=== PATIENT | male | born 1990 | race Hispanic/Latino ===

== ENCOUNTER 2017-12-28 01:38 | Inpatient (IN) | payer SELFPAY ==
[~2017-12-28] VITALS: Ht 185.4 cm; Wt 108.9 kg
[2017-12-28 03:13] LABS: APPEARANCE,URINE Clear (CLEAR); BILIRUBIN,URINE Large (NEGATIVE); COLOR,URINE Dark Yellow (YELLOW); GLUCOSE, URINE (UA) Negative (NEGATIVE); KETONES,URINE Negative (NEGATIVE); LEUKOCYTE ESTERASE ,URINE Trace (NEGATIVE); NITRATE,URINE Negative (NEGATIVE); OCCULT BLOOD,URINE Negative (NEGATIVE); PROTEIN,URINE Negative (NEGATIVE)
[2017-12-28 03:16] LABS: BASOPHILS % (AUTO) 0.6 % (0.0-5.0); EOSINOPHILS % (AUTO) 0.8 % (0.0-8.0); HEMATOCRIT 47.1 % (42-54); LYMPHOCYTES % (AUTO) 18.2 % (21.0-51.0); MEAN CORPUSCULAR HEMOGLOBIN 29.1 pg (27.0-33.0); MEAN CORPUSCULAR VOLUME 85.5 fL (79-99); NEUTROPHILS % (AUTO) 74.4 % (40.0-77.0); PLATELET COUNT (AUTO) 264 K/uL (130-400); RED CELL DISTRIBUTION WIDTH 14.3 % (11.0-15.5); WHITE BLOOD COUNT (AUTO) 11.8 K/uL (4.8-10.8)
[2017-12-28 03:28] LABS: CREATININE 0.9 mg/dL (0.5-1.5); POTASSIUM 3.7 mmol/L (3.5-5.1)
[2017-12-28 03:30] LABS: BACTERIA,URINE Rare /HPF (None Seen); MUCUS,URINE Many LPF (None Seen); RBC,URINE None Seen /HPF (0-1); SQUAMOUS EPITHELIAL CELL,UR Few /HPF (0-2); WBC,URINE None Seen /HPF (0-1)
[2017-12-28 03:37] LABS: ALBUMIN 4.1 g/dL (3.5-5.0); BILIRUBIN,TOTAL 4.4 mg/dL (0.2-1.0); TOTAL PROTEIN, SERUM 8.4 g/dL (6.0-8.3)
[2017-12-28] MEDS ORDERED: GUAIFENESIN-DM 200/20 MG 10 ML PO PRN (09:45)
[2017-12-28] MEDS ORDERED: SODIUM CHLORIDE 0.9% 1000ML 1,000 ML IV ONE (12:36)
[2017-12-28] MEDS ORDERED: ONDANSETRON HCL MDV 20ML 2 MG/ML VIAL ONE ×2 (12:44→12:45)
[2017-12-28 14:27] LABS: AMPHET/METH SCREEN,URINE NEGATIVE (NEGATIVE); BARBITURATE SCREEN, URINE NEGATIVE (NEGATIVE); BENZODIAZEPINES SCREEN,URINE NEGATIVE (NEGATIVE); CANNABINOID SCREEN,URINE POSITIVE (NEGATIVE); COCAINE SCREEN,URINE NEGATIVE (NEGATIVE); OPIATE SCREEN,URINE POSITIVE (NEGATIVE); PHENCYCLIDINE SCREEN,URINE NEGATIVE (NEGATIVE)
[2017-12-28 17:50] VITALS: BP 152/78
[2017-12-28 19:56] VITALS: BP 126/76
[2017-12-28] MEDS: FAMOTIDINE/PF 20 MG/2 ML VIAL IV SCH (20:18)
[2017-12-28] MEDS: SODIUM CHLORIDE 0.9% 1000ML 1,000 ML IV SCH (20:20)
[2017-12-28 23:55] VITALS: BP 143/85
[2017-12-29] MEDS ORDERED: POTASSIUM CHLORIDE 10% ELIXIR 20 MEQ/15 ML UDCUP PO PRN (00:15)
[2017-12-29] MEDS ORDERED: LIDOCAINE HCL-MPF 1% 2ML VIAL IVP PRN (00:15)
[2017-12-29] MEDS ORDERED: MEPERIDINE-PF 25 MG/ML SYG ONE (02:35)
[2017-12-29 04:27] VITALS: BP 112/63
[2017-12-29 04:51] LABS: BASOPHILS % (AUTO) 0.6 % (0.0-5.0); EOSINOPHILS % (AUTO) 2.1 % (0.0-8.0); HEMATOCRIT 43.2 % (42-54); MEAN CORPUSCULAR HEMOGLOBIN 29.1 pg (27.0-33.0); MEAN CORPUSCULAR HGB CONC 34.3 g/dL (32.0-36.0); MEAN CORPUSCULAR VOLUME 84.9 fL (79-99); MONOCYTES % (AUTO) 6.9 % (3.0-13.0); NEUTROPHILS % (AUTO) 59.4 % (40.0-77.0); PLATELET COUNT (AUTO) 264 K/uL (130-400)
[2017-12-29 05:23] LABS: ALBUMIN 3.5 g/dL (3.5-5.0); BILIRUBIN,TOTAL 4.8 mg/dL (0.2-1.0); CREATININE 0.8 mg/dL (0.5-1.5); POTASSIUM 3.6 mmol/L (3.5-5.1); TOTAL PROTEIN, SERUM 7.2 g/dL (6.0-8.3)
[2017-12-29 08:00] VITALS: BP 131/62
[2017-12-29 08:12] LABS: HEPATITIS A ANTIBODY IGM Negative (Negative); HEPATITIS B CORE IGM Negative (Negative); HEPATITIS Bs ANTIGEN SCREEN P Negative (Negative)
[2017-12-29] MEDS: FAMOTIDINE/PF 20 MG/2 ML VIAL IV SCH ×2 (09:00→21:27)
[2017-12-29] MEDS: ONDANSETRON HCL MDV 20ML 2 MG/ML VIAL IVP PRN (09:52)
[2017-12-29] MEDS: SODIUM CHLORIDE 0.9% 1000ML 1,000 ML IV SCH ×2 (10:00→15:41)
[2017-12-29 12:00] VITALS: BP 121/66
[2017-12-29 16:00] VITALS: BP 124/60
[2017-12-29] MEDS ORDERED: LORAZEPAM 2 MG/ML 1 ML VIAL IVP ONE (16:00)
[2017-12-29 19:00] VITALS: BP 134/83
[2017-12-29] MEDS: MEPERIDINE HCL/PF 25 MG/0.5 ML AMPUL IVP PRN (21:29)
[2017-12-29] MEDS ORDERED: LORAZEPAM 2 MG/ML 1 ML VIAL ONE (21:48)
[2017-12-29 23:49] VITALS: BP 134/80
[2017-12-30 04:00] VITALS: BP 134/87
[2017-12-30 05:36] LABS: BASOPHILS % (AUTO) 0.7 % (0.0-5.0); EOSINOPHILS % (AUTO) 2.4 % (0.0-8.0); HEMATOCRIT 43.7 % (42-54); LYMPHOCYTES % (AUTO) 26.1 % (21.0-51.0); MEAN CORPUSCULAR HEMOGLOBIN 29.2 pg (27.0-33.0); MEAN CORPUSCULAR HGB CONC 34.1 g/dL (32.0-36.0); MEAN CORPUSCULAR VOLUME 85.6 fL (79-99); MONOCYTES % (AUTO) 6.9 % (3.0-13.0); NEUTROPHILS % (AUTO) 63.9 % (40.0-77.0); PLATELET COUNT (AUTO) 242 K/uL (130-400); RED BLOOD CELL COUNT(AUTO) 5.11 MIL/uL (4.50-6.20); RED CELL DISTRIBUTION WIDTH 14.1 % (11.0-15.5); WHITE BLOOD COUNT (AUTO) 8.2 K/uL (4.8-10.8)
[2017-12-30 06:04] LABS: ALBUMIN 3.5 g/dL (3.5-5.0); BILIRUBIN,TOTAL 4.7 mg/dL (0.2-1.0); CREATININE 0.7 mg/dL (0.5-1.5); POTASSIUM 3.3 mmol/L (3.5-5.1); TOTAL PROTEIN, SERUM 7.4 g/dL (6.0-8.3)
[2017-12-30 08:00] VITALS: BP 108/68
[2017-12-30] MEDS: POTASSIUM CHLORIDE 20MEQ/100ML 100 ML IV PRN (08:51)
[2017-12-30] MEDS ORDERED: PANTOPRAZOLE SODIUM 40 MG TABLET.DR PO SCH (09:00)
[2017-12-30] MEDS: ONDANSETRON HCL MDV 20ML 2 MG/ML VIAL IVP PRN ×2 (09:24→23:48)
[2017-12-30] MEDS: MEPERIDINE HCL/PF 25 MG/0.5 ML AMPUL IVP PRN (09:25)
[2017-12-30] MEDS: ALPRAZOLAM 0.25 MG TABLET PO PRN ×2 (10:54→22:29)
[2017-12-30] MEDS: SODIUM CHLORIDE 0.9% 1000ML 1,000 ML IV SCH ×3 (11:41→23:48)
[2017-12-30 12:00] VITALS: BP 122/76
[2017-12-30 16:00] VITALS: BP 134/72
[2017-12-30 20:00] VITALS: BP 134/76
[2017-12-30] MEDS: FAMOTIDINE/PF 20 MG/2 ML VIAL IV SCH (20:11)
[2017-12-30 23:51] VITALS: BP 147/91
[2017-12-31] VITALS (19 sets, daily range): BP systolic 102–142; BP diastolic 48–95
[2017-12-31] MEDS ORDERED: MEPERIDINE-PF 25 MG/ML SYG ONE (01:02)
[2017-12-31] MEDS: MAG HYDROX/AL HYDROX/SIMETH ES 30 ML SUSP UDCUP PO PRN (01:05)
[2017-12-31 06:11] LABS: HEMATOCRIT 41.7 % (42-54); MEAN CORPUSCULAR HEMOGLOBIN 30.1 pg (27.0-33.0); MEAN CORPUSCULAR HGB CONC 35.4 g/dL (32.0-36.0); NUCLEATED RED BLOOD CELLS 0.1 % (0.0-0.19); PLATELET COUNT (AUTO) 242 K/uL (130-400); RED BLOOD CELL COUNT(AUTO) 4.91 MIL/uL (4.50-6.20); WHITE BLOOD COUNT (AUTO) 8.2 K/uL (4.8-10.8)
[2017-12-31 06:44] LABS: ALBUMIN 3.5 g/dL (3.5-5.0); BILIRUBIN,DIRECT 4.3 mg/dL (0.0-0.3); BILIRUBIN,TOTAL 5.4 mg/dL (0.2-1.0); CREATININE 0.8 mg/dL (0.5-1.5); POTASSIUM 3.5 mmol/L (3.5-5.1); TOTAL PROTEIN, SERUM 7.3 g/dL (6.0-8.3)
[2017-12-31] MEDS: FAMOTIDINE/PF 20 MG/2 ML VIAL IV SCH ×2 (09:00→20:30)
[2017-12-31] MEDS: LEVOFLOXACIN 500 MG/D5W 100 ML 100 ML IV SCH (09:21)
[2017-12-31] MEDS: POTASSIUM CHLORIDE 20MEQ/100ML 100 ML IV PRN (09:24)
[2017-12-31] MEDS ORDERED: ISOVUE-370 50ML VIAL IV ONE (11:02)
[2017-12-31] MEDS ORDERED: FENTANYL CITRATE PF 50 MCG/1 ML 2ML VIAL ONE ×2 (11:40→12:30)
[2017-12-31] MEDS ORDERED: PROPOFOL 10 MG/ML 20ML VIAL IV ONE ×2 (11:40→12:17)
[2017-12-31] MEDS ORDERED: MIDAZOLAM HCL 1 MG/ML 2ML VIAL ONE (11:41)
[2017-12-31] MEDS ORDERED: INDOMETHACIN 50 MG SUPP.RECT RC SCH (12:00)
[2017-12-31] MEDS ORDERED: PROPOFOL 1000 MG/100 ML 100 ML IV ONE (12:29)
[2017-12-31] MEDS: ALPRAZOLAM 0.25 MG TABLET PO PRN ×2 (15:57→23:43)
[2017-12-31] MEDS: SODIUM CHLORIDE 0.9% 1000ML 1,000 ML IV SCH ×2 (17:41→22:00)
[2018-01-01] VITALS (7 sets, daily range): BP systolic 102–144; BP diastolic 61–88
[2018-01-01] MEDS: ZOLPIDEM TARTRATE 5 MG TAB PO PRN (02:19)
[2018-01-01] MEDS: SODIUM CHLORIDE 0.9% 1000ML 1,000 ML IV SCH ×2 (02:21→14:23)
[2018-01-01 05:39] LABS: HEMATOCRIT 43.4 % (42-54); MEAN CORPUSCULAR HEMOGLOBIN 29.4 pg (27.0-33.0); MEAN CORPUSCULAR HGB CONC 34.4 g/dL (32.0-36.0); MEAN CORPUSCULAR VOLUME 85.6 fL (79-99); PLATELET COUNT (AUTO) 243 K/uL (130-400); RED BLOOD CELL COUNT(AUTO) 5.07 MIL/uL (4.50-6.20); RED CELL DISTRIBUTION WIDTH 14.3 % (11.0-15.5); WHITE BLOOD COUNT (AUTO) 8.1 K/uL (4.8-10.8)
[2018-01-01 06:03] LABS: ALBUMIN 3.4 g/dL (3.5-5.0); BILIRUBIN,TOTAL 4.3 mg/dL (0.2-1.0); CREATININE 0.9 mg/dL (0.5-1.5); POTASSIUM 4.3 mmol/L (3.5-5.1); TOTAL PROTEIN, SERUM 7.4 g/dL (6.0-8.3)
[2018-01-01 06:12] LABS: BAND NEUTROPHILS % (MANUAL) 1 % (0-2); EOSINOPHILS % (MANUAL) 2 % (1-6); LYMPHOCYTES % (MANUAL) 19 % (22-44); MAN.DIFF COMMENT-IMPRESSION MANUAL DIFFERENTIAL; MONOCYTES % (MANUAL) 7 % (2-9); PLATELET MORPHOLOGY COMMENT ADEQUATE; SEGMENTED NEUTROPHILS % 71 % (40-70)
[2018-01-01] MEDS: FAMOTIDINE/PF 20 MG/2 ML VIAL IV SCH ×2 (08:44→20:48)
[2018-01-01] MEDS: LEVOFLOXACIN 500 MG/D5W 100 ML 100 ML IV SCH (08:44)
[2018-01-01] MEDS ORDERED: MEPERIDINE-PF 25 MG/ML SYG ONE (08:56)
[2018-01-01] MEDS: MEPERIDINE HCL/PF 25 MG/0.5 ML AMPUL IVP PRN (09:00)
[2018-01-01] MEDS ORDERED: HEPARIN SODIUM 1000UNIT/ML 10ML VIAL ONE (09:47)
[2018-01-01] MEDS: ALPRAZOLAM 0.25 MG TABLET PO PRN (12:40)
[2018-01-01] MEDS: ACETAMINOPHEN-CODEINE 300/30MG TAB PO PRN (14:27)
[2018-01-01] MEDS: MAG HYDROX/AL HYDROX/SIMETH ES 30 ML SUSP UDCUP PO PRN (16:48)
[2018-01-02] VITALS (27 sets, daily range): BP systolic 114–176; BP diastolic 67–108
[2018-01-02] MEDS: SODIUM CHLORIDE 0.9% 1000ML 1,000 ML IV SCH ×3 (00:39→21:03)
[2018-01-02] MEDS: ALPRAZOLAM 0.25 MG TABLET PO PRN (00:39)
[2018-01-02 05:45] LABS: PARTIAL THROMBOPLASTIN TIME 24.5 SEC (26.3-35.5); PROTHROMBIN TIME 10.5 SEC (9.6-11.6)
[2018-01-02 05:48] LABS: ALBUMIN 3.5 g/dL (3.5-5.0); TOTAL PROTEIN, SERUM 7.4 g/dL (6.0-8.3)
[2018-01-02] MEDS: FAMOTIDINE/PF 20 MG/2 ML VIAL IV SCH ×2 (08:43→19:41)
[2018-01-02] MEDS: LEVOFLOXACIN 500 MG/D5W 100 ML 100 ML IV SCH (08:43)
[2018-01-02] MEDS ORDERED: ISOVUE-370 50ML VIAL IV ONE (10:31)
[2018-01-02] MEDS: ONDANSETRON HCL MDV 20ML 2 MG/ML VIAL IVP PRN ×2 (12:43→21:01)
[2018-01-02] MEDS ORDERED: ISOVUE-300 100 ML VIAL IV ONE (13:02)
[2018-01-02] MEDS ORDERED: LIDOCAINE HCL 1% MDV 50ML VIAL ONE (13:02)
[2018-01-02] MEDS ORDERED: FENTANYL CITRATE PF 50 MCG/1 ML 2ML VIAL ONE ×2 (13:29)
[2018-01-02] MEDS ORDERED: MIDAZOLAM HCL 1 MG/ML 2ML VIAL ONE ×2 (13:29→13:31)
[2018-01-02] MEDS ORDERED: MORPHINE SULFATE 4 MG/1ML SYG ONE ×2 (13:31→13:32)
[2018-01-02] MEDS ORDERED: KETAMINE 50MG/ML SYRINGE 50 MG/ML DISP.SYRIN IV ONE (13:38)
[2018-01-02] MEDS ORDERED: MEPERIDINE-PF 50 MG/ML SYG ONE (14:50)
[2018-01-02] MEDS ORDERED: PROPOFOL 10 MG/ML 20ML VIAL IV ONE ×3 (16:35→17:04)
[2018-01-02] MEDS ORDERED: MEPERIDINE-PF 25 MG/ML SYG ONE ×2 (16:35→20:58)
[2018-01-02] MEDS ORDERED: GLUCAGON 1MG KIT 1 MG ML ONE (17:25)
[2018-01-02] MEDS ORDERED: PROPOFOL 1000 MG/100 ML 0 ML IV ONE (17:33)
[2018-01-02 22:39] LABS: HEMATOCRIT 44.2 % (42-54)
[2018-01-03] VITALS (22 sets, daily range): BP systolic 111–169; BP diastolic 60–106
[2018-01-03] MEDS ORDERED: MEPERIDINE-PF 25 MG/ML SYG ONE ×3 (00:06→15:16)
[2018-01-03] MEDS: ZOLPIDEM TARTRATE 5 MG TAB PO PRN (00:10)
[2018-01-03] MEDS: ACETAMINOPHEN-CODEINE 300/30MG TAB PO PRN (02:09)
[2018-01-03] MEDS: ONDANSETRON HCL MDV 20ML 2 MG/ML VIAL IVP PRN ×3 (02:12→16:59)
[2018-01-03] MEDS: MEPERIDINE HCL/PF 25 MG/0.5 ML AMPUL IVP PRN ×3 (03:10→18:14)
[2018-01-03 05:23] LABS: MEAN CORPUSCULAR HEMOGLOBIN 29.5 pg (27.0-33.0); MEAN CORPUSCULAR HGB CONC 34.6 g/dL (32.0-36.0); MEAN CORPUSCULAR VOLUME 85.4 fL (79-99); PLATELET COUNT (AUTO) 255 K/uL (130-400); RED BLOOD CELL COUNT(AUTO) 5.15 MIL/uL (4.50-6.20); RED CELL DISTRIBUTION WIDTH 14.4 % (11.0-15.5); WHITE BLOOD COUNT (AUTO) 15.4 K/uL (4.8-10.8)
[2018-01-03] MEDS: SODIUM CHLORIDE 0.9% 1000ML 1,000 ML IV SCH ×3 (05:41→17:05)
[2018-01-03 05:43] LABS: ALBUMIN 3.6 g/dL (3.5-5.0); BILIRUBIN,DIRECT 1.9 mg/dL (0.0-0.3); CREATININE 0.7 mg/dL (0.5-1.5); POTASSIUM 3.7 mmol/L (3.5-5.1); TOTAL PROTEIN, SERUM 7.8 g/dL (6.0-8.3)
[2018-01-03 06:00] LABS: BAND NEUTROPHILS % (MANUAL) 11 % (0-2); LYMPHOCYTES % (MANUAL) 11 % (22-44); MAN.DIFF COMMENT-IMPRESSION MANUAL DIFFERENTIAL; MONOCYTES % (MANUAL) 4 % (2-9); REACTIVE LYMPHOCYTES 1 % (0-0); SEGMENTED NEUTROPHILS % 73 % (40-70)
[2018-01-03 06:01] LABS: PLATELET MORPHOLOGY COMMENT ADEQUATE
[2018-01-03] MEDS: LEVOFLOXACIN 500 MG/D5W 100 ML 100 ML IV SCH (08:00)
[2018-01-03] MEDS: FAMOTIDINE/PF 20 MG/2 ML VIAL IV SCH ×2 (08:15→21:00)
[2018-01-03] MEDS ORDERED: LACTATED RINGERS 1000ML 1,000 ML IV ONE (12:42)
[2018-01-03] MEDS ORDERED: HEPARIN SODIUM 1000UNIT/ML 10ML VIAL ONE (12:51)
[2018-01-03] MEDS ORDERED: GLYCOPYRROLATE 0.2 MG/ML 5 ML VIAL ONE (13:32)
[2018-01-03] MEDS ORDERED: LIDOCAINE PF 2% 5ML ABBOJECT ONE (13:32)
[2018-01-03] MEDS ORDERED: DEXAMETHASONE SOD PHOSPHATE 10MG/ML 1ML VIAL ONE (13:32)
[2018-01-03] MEDS ORDERED: MIDAZOLAM HCL 1 MG/ML 2ML VIAL ONE (13:32)
[2018-01-03] MEDS ORDERED: PROPOFOL 10 MG/ML 20ML VIAL IV ONE ×2 (13:33→14:36)
[2018-01-03] MEDS ORDERED: FENTANYL CITRATE PF 50 MCG/1 ML 2ML VIAL ONE ×4 (13:33→14:50)
[2018-01-03] MEDS ORDERED: KETOROLAC TROMETHAMINE 30MG/ML ONE (20:28)
[2018-01-03] MEDS ORDERED: KETOROLAC TROMETHAMINE 30MG/ML IV SCH (20:30)
[2018-01-04 00:15] VITALS: BP 148/89
[2018-01-04] MEDS ORDERED: MORPHINE SULFATE 2 MG/ML 1ML SYG ONE (00:29)
[2018-01-04] MEDS ORDERED: MORPHINE SULFATE 2 MG/ML 1ML SYG IVP ONE (00:30)
[2018-01-04] MEDS: ONDANSETRON HCL MDV 20ML 2 MG/ML VIAL IVP PRN ×2 (00:42→06:06)
[2018-01-04] MEDS: SODIUM CHLORIDE 0.9% 1000ML 1,000 ML IV SCH ×4 (01:41→20:31)
[2018-01-04] MEDS: ALPRAZOLAM 0.25 MG TABLET PO PRN (02:31)
[2018-01-04 03:05] VITALS: BP 139/82
[2018-01-04 05:59] LABS: HEMATOCRIT 38.8 % (42-54); MEAN CORPUSCULAR HEMOGLOBIN 29.6 pg (27.0-33.0); MEAN CORPUSCULAR HGB CONC 34.5 g/dL (32.0-36.0); MEAN CORPUSCULAR VOLUME 85.8 fL (79-99); PLATELET COUNT (AUTO) 291 K/uL (130-400); RED BLOOD CELL COUNT(AUTO) 4.52 MIL/uL (4.50-6.20); RED CELL DISTRIBUTION WIDTH 14.3 % (11.0-15.5); WHITE BLOOD COUNT (AUTO) 23.6 K/uL (4.8-10.8)
[2018-01-04 06:14] LABS: BAND NEUTROPHILS % (MANUAL) 6 % (0-2); LYMPHOCYTES % (MANUAL) 6 % (22-44); MAN.DIFF COMMENT-IMPRESSION MANUAL DIFFERENTIAL; MONOCYTES % (MANUAL) 7 % (2-9); PLATELET MORPHOLOGY COMMENT ADEQUATE; REACTIVE LYMPHOCYTES 1 % (0-0); SEGMENTED NEUTROPHILS % 80 % (40-70)
[2018-01-04 06:23] LABS: ALBUMIN 3.2 g/dL (3.5-5.0); BILIRUBIN,TOTAL 3.9 mg/dL (0.2-1.0); CREATININE 0.9 mg/dL (0.5-1.5); POTASSIUM 4.2 mmol/L (3.5-5.1); TOTAL PROTEIN, SERUM 7.2 g/dL (6.0-8.3)
[2018-01-04] MEDS: MEPERIDINE HCL/PF 25 MG/0.5 ML AMPUL IVP PRN (07:08)
[2018-01-04 08:00] VITALS: BP 126/70
[2018-01-04] MEDS: LEVOFLOXACIN 500 MG/D5W 100 ML 100 ML IV SCH (08:29)
[2018-01-04] MEDS ORDERED: FAMOTIDINE 20MG TAB 20 MG TAB PO SCH (09:00)
[2018-01-04] MEDS: MORPHINE SULFATE 2 MG/ML 1ML SYG IVP PRN ×3 (10:28→21:39)
[2018-01-04] MEDS ORDERED: PANTOPRAZOLE 40 MG/VIAL IVP SCH (10:30)
[2018-01-04] MEDS: PANTOPRAZOLE 40 MG/VIAL IVP SCH ×2 (10:50→20:10)
[2018-01-04] MEDS: METOCLOPRAMIDE 10 MG/2 ML VIAL IVP SCH ×2 (11:15→16:07)
[2018-01-04 12:00] VITALS: BP 109/65
[2018-01-04] MEDS ORDERED: KETOROLAC TROMETHAMINE 15MG/ML IV PRN (12:30)
[2018-01-04] MEDS ORDERED: CEFEPIME 1GM+NS 50ML 50 ML IV SCH (14:00)
[2018-01-04] MEDS: CEFEPIME HCL 1 GM VIAL IVP SCH ×2 (14:05→21:35)
[2018-01-04 16:00] VITALS: BP 113/48
[2018-01-04] MEDS: SIMETHICONE 80 MG TAB.CHEW PO SCH ×3 (16:07→20:10)
[2018-01-04 20:00] VITALS: BP 125/81
[2018-01-05] VITALS: BP 133/78
[2018-01-05] MEDS: MORPHINE SULFATE 2 MG/ML 1ML SYG IVP PRN ×4 (03:57→22:21)
[2018-01-05 04:00] VITALS: BP 137/88
[2018-01-05] MEDS: ONDANSETRON HCL MDV 20ML 2 MG/ML VIAL IVP PRN ×4 (04:17→19:48)
[2018-01-05] MEDS: CEFEPIME HCL 1 GM VIAL IVP SCH ×3 (05:52→21:51)
[2018-01-05 06:03] LABS: HEMATOCRIT 28.8 % (42-54); MEAN CORPUSCULAR HGB CONC 35.3 g/dL (32.0-36.0); MEAN CORPUSCULAR VOLUME 84.8 fL (79-99); PLATELET COUNT (AUTO) 254 K/uL (130-400); RED BLOOD CELL COUNT(AUTO) 3.39 MIL/uL (4.50-6.20); RED CELL DISTRIBUTION WIDTH 14.3 % (11.0-15.5); WHITE BLOOD COUNT (AUTO) 26.9 K/uL (4.8-10.8)
[2018-01-05 06:11] LABS: ALBUMIN 3.1 g/dL (3.5-5.0); BILIRUBIN,TOTAL 3.5 mg/dL (0.2-1.0); CREATININE 0.7 mg/dL (0.5-1.5); POTASSIUM 3.3 mmol/L (3.5-5.1); TOTAL PROTEIN, SERUM 6.9 g/dL (6.0-8.3)
[2018-01-05] MEDS: ACETAMINOPHEN-CODEINE 300/30MG TAB PO PRN (06:14)
[2018-01-05 06:39] LABS: BAND NEUTROPHILS % (MANUAL) 1 % (0-2); LYMPHOCYTES % (MANUAL) 8 % (22-44); MAN.DIFF COMMENT-IMPRESSION MANUAL DIFFERENTIAL; MONOCYTES % (MANUAL) 4 % (2-9); SEGMENTED NEUTROPHILS % 87 % (40-70)
[2018-01-05] MEDS: METOCLOPRAMIDE 10 MG/2 ML VIAL IVP SCH ×3 (07:13→16:05)
[2018-01-05 08:00] VITALS: BP 145/84
[2018-01-05] MEDS: LACTATED RINGERS 1000ML 1,000 ML IV SCH ×2 (08:44→19:47)
[2018-01-05] MEDS: PANTOPRAZOLE 40 MG/VIAL IVP SCH ×2 (08:44→19:47)
[2018-01-05] MEDS: SIMETHICONE 80 MG TAB.CHEW PO SCH ×4 (08:44→19:47)
[2018-01-05] MEDS: POTASSIUM CHLORIDE 20MEQ/100ML 100 ML IV PRN ×2 (08:45→14:47)
[2018-01-05] MEDS ORDERED: IOPAMIDOL-370 100 ML VIAL IV ONE (09:02)
[2018-01-05 12:00] VITALS: BP 128/81
[2018-01-05] MEDS ORDERED: LIDOCAINE HCL 2% VISCOUS 30 ML, MAG HYDROX/AL HYDROX/SIMETH 30 ML, DICYCLOMINE HCL 20 MG PO PRN ×3 (12:15)
[2018-01-05] MEDS ORDERED: MORPHINE SULFATE 4 MG/1ML SYG IVP PRN (12:15)
[2018-01-05] MEDS ORDERED: PROMETHAZINE HCL 25 MG/ML 1ML AMPULE IM PRN (12:15)
[2018-01-05] MEDS ORDERED: COMPOUND PO MISCELLANEOUS 1 EACH MISC MISC PRN (12:15)
[2018-01-05] MEDS ORDERED: LIDOCAINE HCL 2% VISCOUS 30 ML, MAG HYDROX/AL HYDROX/SIMETH 30 ML, BELLADONNA-PHENOBARB... PO PRN ×3 (12:15)
[2018-01-05 13:09] LABS: BASOPHILS % (AUTO) 0.2 % (0.0-5.0); HEMATOCRIT 27.6 % (42-54); MEAN CORPUSCULAR HEMOGLOBIN 30.3 pg (27.0-33.0); MEAN CORPUSCULAR HGB CONC 35.1 g/dL (32.0-36.0); MEAN CORPUSCULAR VOLUME 86.4 fL (79-99); MONOCYTES % (AUTO) 9.2 % (3.0-13.0); NEUTROPHILS % (AUTO) 81.6 % (40.0-77.0); PLATELET COUNT (AUTO) 213 K/uL (130-400); RED CELL DISTRIBUTION WIDTH 14.5 % (11.0-15.5)
[2018-01-05 16:00] VITALS: BP 137/83
[2018-01-05 18:28] LABS: HEMATOCRIT 27.1 % (42-54)
[2018-01-05 18:40] LABS: INR 1.03 (0.85-1.15); PROTHROMBIN TIME 10.8 SEC (9.6-11.6)
[2018-01-05 20:00] VITALS: BP 126/86
[2018-01-05] MEDS: MAG HYDROX/AL HYDROX/SIMETH ES 30 ML SUSP UDCUP PO PRN (20:15)
[2018-01-05] MEDS: ALPRAZOLAM 0.25 MG TABLET PO PRN (20:49)
[2018-01-06] VITALS (7 sets, daily range): BP systolic 118–136; BP diastolic 72–89
[2018-01-06] MEDS: MORPHINE SULFATE 2 MG/ML 1ML SYG IVP PRN ×3 (01:12→12:08)
[2018-01-06] MEDS: ONDANSETRON HCL MDV 20ML 2 MG/ML VIAL IVP PRN ×4 (01:12→22:34)
[2018-01-06] MEDS: MAG HYDROX/AL HYDROX/SIMETH ES 30 ML SUSP UDCUP PO PRN (01:16)
[2018-01-06] MEDS: LACTATED RINGERS 1000ML 1,000 ML IV SCH (04:13)
[2018-01-06 04:57] LABS: HEMATOCRIT 25.5 % (42-54); MEAN CORPUSCULAR HEMOGLOBIN 30.2 pg (27.0-33.0); MEAN CORPUSCULAR HGB CONC 35.2 g/dL (32.0-36.0); MEAN CORPUSCULAR VOLUME 85.8 fL (79-99); NUCLEATED RED BLOOD CELLS 0.1 % (0.0-0.19); PLATELET COUNT (AUTO) 257 K/uL (130-400); RED BLOOD CELL COUNT(AUTO) 2.97 MIL/uL (4.50-6.20); RED CELL DISTRIBUTION WIDTH 14.2 % (11.0-15.5); WHITE BLOOD COUNT (AUTO) 21.6 K/uL (4.8-10.8)
[2018-01-06 05:15] LABS: ALBUMIN 2.8 g/dL (3.5-5.0); CREATININE 0.7 mg/dL (0.5-1.5); POTASSIUM 3.7 mmol/L (3.5-5.1); TOTAL PROTEIN, SERUM 6.8 g/dL (6.0-8.3)
[2018-01-06] MEDS: CEFEPIME HCL 1 GM VIAL IVP SCH ×3 (05:27→22:16)
[2018-01-06 05:37] LABS: BAND NEUTROPHILS % (MANUAL) 2 % (0-2); LYMPHOCYTES % (MANUAL) 7 % (22-44); MAN.DIFF COMMENT-IMPRESSION MANUAL DIFFERENTIAL; MONOCYTES % (MANUAL) 5 % (2-9); SEGMENTED NEUTROPHILS % 86 % (40-70)
[2018-01-06 05:38] LABS: PLATELET MORPHOLOGY COMMENT ADEQUATE
[2018-01-06] MEDS: METOCLOPRAMIDE 10 MG/2 ML VIAL IVP SCH ×3 (06:45→16:21)
[2018-01-06] MEDS: ACETAMINOPHEN-CODEINE 300/30MG TAB PO PRN ×3 (07:00→22:22)
[2018-01-06] MEDS: ALPRAZOLAM 0.25 MG TABLET PO PRN ×3 (09:18→20:39)
[2018-01-06] MEDS: PANTOPRAZOLE 40 MG/VIAL IVP SCH ×2 (09:18→22:18)
[2018-01-06] MEDS: SIMETHICONE 80 MG TAB.CHEW PO SCH ×4 (09:19→20:39)
[2018-01-06 12:30] LABS: HEMATOCRIT 27.3 % (42-54); MEAN CORPUSCULAR HEMOGLOBIN 30.6 pg (27.0-33.0); MEAN CORPUSCULAR VOLUME 87.4 fL (79-99); NUCLEATED RED BLOOD CELLS 0.2 % (0.0-0.19); PLATELET COUNT (AUTO) 288 K/uL (130-400); RED BLOOD CELL COUNT(AUTO) 3.12 MIL/uL (4.50-6.20); RED CELL DISTRIBUTION WIDTH 14.2 % (11.0-15.5); WHITE BLOOD COUNT (AUTO) 20.7 K/uL (4.8-10.8)
[2018-01-07 04:00] VITALS: BP 128/79
[2018-01-07] MEDS: ONDANSETRON HCL MDV 20ML 2 MG/ML VIAL IVP PRN ×4 (05:18→21:27)
[2018-01-07 05:34] LABS: HEMATOCRIT 25.9 % (42-54); MEAN CORPUSCULAR HGB CONC 34.9 g/dL (32.0-36.0); PLATELET COUNT (AUTO) 343 K/uL (130-400); RED BLOOD CELL COUNT(AUTO) 3.01 MIL/uL (4.50-6.20); RED CELL DISTRIBUTION WIDTH 14.3 % (11.0-15.5); WHITE BLOOD COUNT (AUTO) 20.4 K/uL (4.8-10.8)
[2018-01-07 05:42] LABS: LYMPHOCYTES % (MANUAL) 16 % (22-44); MONOCYTES % (MANUAL) 11 % (2-9); SEGMENTED NEUTROPHILS % 73 % (40-70)
[2018-01-07 05:43] LABS: ALBUMIN 2.6 g/dL (3.5-5.0); BILIRUBIN,TOTAL 2.9 mg/dL (0.2-1.0); CREATININE 0.8 mg/dL (0.5-1.5); MAN.DIFF COMMENT-IMPRESSION MANUAL DIFFERENTIAL; PLATELET MORPHOLOGY COMMENT ADEQUATE; POTASSIUM 3.5 mmol/L (3.5-5.1); TOTAL PROTEIN, SERUM 6.8 g/dL (6.0-8.3)
[2018-01-07] MEDS: METOCLOPRAMIDE 10 MG/2 ML VIAL IVP SCH ×3 (06:26→19:13)
[2018-01-07] MEDS: CEFEPIME HCL 1 GM VIAL IVP SCH ×3 (06:26→20:38)
[2018-01-07] MEDS: ACETAMINOPHEN-CODEINE 300/30MG TAB PO PRN ×2 (07:10→13:58)
[2018-01-07 08:20] VITALS: BP 146/74
[2018-01-07] MEDS: SIMETHICONE 80 MG TAB.CHEW PO SCH ×4 (09:07→20:23)
[2018-01-07] MEDS: PANTOPRAZOLE 40 MG/VIAL IVP SCH ×2 (09:07→20:23)
[2018-01-07] MEDS: LACTATED RINGERS 1000ML 1,000 ML IV SCH ×2 (11:23→19:13)
[2018-01-07 12:50] VITALS: BP 135/81
[2018-01-07] MEDS: MAG HYDROX/AL HYDROX/SIMETH ES 30 ML SUSP UDCUP PO PRN (13:57)
[2018-01-07] MEDS ORDERED: MAGNESIUM CITRATE 296 ML SOLUTION PO SCH (17:30)
[2018-01-07 17:43] VITALS: BP 129/77
[2018-01-07 20:00] VITALS: BP 122/70
[2018-01-07] MEDS: ZOLPIDEM TARTRATE 5 MG TAB PO PRN (20:39)
[2018-01-08] VITALS: BP 130/82
[2018-01-08 03:56] VITALS: BP 136/89
[2018-01-08 04:43] LABS: HEMATOCRIT 24.6 % (42-54); MEAN CORPUSCULAR HEMOGLOBIN 30.9 pg (27.0-33.0); MEAN CORPUSCULAR HGB CONC 35.8 g/dL (32.0-36.0); MEAN CORPUSCULAR VOLUME 86.3 fL (79-99); NUCLEATED RED BLOOD CELLS 0.3 % (0.0-0.19); PLATELET COUNT (AUTO) 392 K/uL (130-400); RED BLOOD CELL COUNT(AUTO) 2.85 MIL/uL (4.50-6.20); RED CELL DISTRIBUTION WIDTH 14.5 % (11.0-15.5); WHITE BLOOD COUNT (AUTO) 18.7 K/uL (4.8-10.8)
[2018-01-08] MEDS: ONDANSETRON HCL MDV 20ML 2 MG/ML VIAL IVP PRN (04:55)
[2018-01-08 04:56] LABS: CREATININE 0.7 mg/dL (0.5-1.5); POTASSIUM 3.4 mmol/L (3.5-5.1)
[2018-01-08] MEDS: CEFEPIME HCL 1 GM VIAL IVP SCH ×2 (06:01→14:26)
[2018-01-08] MEDS: POTASSIUM CHLORIDE 20 MEQ ERTAB PO PRN ×2 (06:03→09:29)
[2018-01-08] MEDS: METOCLOPRAMIDE 10 MG/2 ML VIAL IVP SCH ×2 (07:30→11:30)
[2018-01-08 08:00] VITALS: BP 120/72
[2018-01-08] MEDS: SIMETHICONE 80 MG TAB.CHEW PO SCH ×2 (09:29→13:00)
[2018-01-08] MEDS ORDERED: METR500T PO (10:15)
[2018-01-08] MEDS ORDERED: CIPR-245 PO (10:15)
[2018-01-08] MEDS: ACETAMINOPHEN-CODEINE 300/30MG TAB PO PRN (11:51)
[2018-01-08 12:00] VITALS: BP 127/80
[2018-01-08] MEDS: PANTOPRAZOLE 40 MG/VIAL IVP SCH (14:26)
[2018-01-08] MEDS: MAG HYDROX/AL HYDROX/SIMETH ES 30 ML SUSP UDCUP PO PRN (14:59)
[2018-01-08 15:46] VITALS: BP 126/76
[2018-01-08 19:49] VITALS: BP 135/86
== END 2018-01-08 20:50 | disposition home or self-care (01) | DRG 417 ==
LOC: EDH 01:38 → OBSVTOIN 01:39 → EDHIP 01:39 → 4BH 16:51 → 3CH 01-06 18:59
PROVIDERS: ADMIT Family Medicine; ATTEND Family Medicine
PROC: BF111ZZ Fluoroscopy of Biliary and Pancreatic Ducts using Low Osmolar Contrast (ICD-10-PCS; 2018-01-03)
PROC: 0F998ZZ Drainage of Common Bile Duct, Via Natural or Artificial Opening Endoscopic (ICD-10-PCS; 2018-01-03)
PROC: 0FT44ZZ Resection of Gallbladder, Percutaneous Endoscopic Approach (ICD-10-PCS; principal; 2018-01-03 13:32)
DX: K80.67 Calculus of gallbladder and bile duct with acute and chronic cholecystitis with obstruction (principal); K66.1 Hemoperitoneum; R18.8 Other ascites; K31.84 Gastroparesis; K76.0 Fatty (change of) liver, not elsewhere classified; D62 Acute posthemorrhagic anemia; J98.11 Atelectasis; F17.200 Nicotine dependence, unspecified, uncomplicated; K21.9 Gastro-esophageal reflux disease without esophagitis; T40.605A Adverse effect of unspecified narcotics, initial encounter
CPT/HCPCS: 36415; 47541; 71046; 74178; 74183; 74330; 76705; 80048; 80053; 80074; 80076; 80305; 81001; 83690; 85014; 85018; 85025; 85027; 85610; 85730; 86850; 86900; 86901; 86922; 87040; 88304; A4218; C1769; C1773; C1894; C9113; J0692; J1100; J1610; J1644; J1885; J1956; J2001; J2060; J2175; J2250; J2270; J2550; J2704; J2765; J3010; J3480; J3490; J7030; J7120; Q9967